=== PATIENT | female | born 1965 | race Caucasian/White ===

== ENCOUNTER → 2017-12-11 | Outpatient (CLI) | payer BC, OTHER | LOC: RAD 15:22 | DX: M85.2 Hyperostosis of skull (principal); D48.5 Neoplasm of uncertain behavior of skin ==

== ENCOUNTER → 2018-10-15 | Outpatient (CLI) | payer BC, OTHER | LOC: RAD 01:16 | DX: Z12.31 Encounter for screening mammogram for malignant neoplasm of breast (principal) ==

== ENCOUNTER → 2020-04-09 | Outpatient (CLI) | payer BC, OTHER | LOC: BC 10:00 | PROVIDERS: ATTEND Family Medicine | DX: Z12.31 Encounter for screening mammogram for malignant neoplasm of breast (principal) ==